=== PATIENT | female | born 1985 ===

== ENCOUNTER 2018-04-17 09:19 | Inpatient (IN) | payer BC ==
[~2018-04-17] VITALS: Ht 167.6 cm; Wt 84.1 kg
[2018-05-12] VITALS (40 sets, daily range): BP systolic 103–152; BP diastolic 56–81; PULSE 76–108; TEMP 97.4–98.4
[2018-05-12] MEDS ORDERED: PRENATAL FORMU1 EAC3 PO (06:35)
[2018-05-12 08:11] LABS: HEMOGLOBIN 12.3 g/dl (12.5-16.0); MEAN CELL VOLUME 95 fl (80.0-100.0); MEAN CORPUSCULAR HEMOGLOBIN 33 pg (27.0-31.0); MEAN CORPUSCULAR HGB CONC 34 g/dl (33.0-37.0); MEAN PLATELET VOLUME 9.8 fl (7.4-10.4); PLATELET COUNT 267 K/mm3 (130-400); RED BLOOD COUNT 3.77 M/mm3 (4.10-5.30); REDCELL DISTRIBUTION WIDTH-CV 15.5 % (11.5-14.5)
[2018-05-12 08:14] LABS: HEMATOCRIT 35.8 % (37.0-47.0)
[2018-05-12 11:35] LABS: LYMPHOCYTE 21 % (20.0-51.0); METAMYELOCYTE 1 % (0-0); NEUTROPHILS 70 % (42.0-75.2); PLATELET ESTIMATE NORMAL (NORMAL)
[2018-05-13 00:01] VITALS: BP 122/68; PULSE 68; TEMP 98.5
[2018-05-13 03:30] VITALS: BP 111/74; PULSE 91; TEMP 98.2
[2018-05-13 08:15] VITALS: BP 124/79; PULSE 98; TEMP 98.4
[2018-05-13] MEDS ORDERED: MOTRIN 800800 MG/TAB PO (08:48)
[2018-05-13 16:20] VITALS: BP 137/78; PULSE 95; TEMP 98.2
[2018-05-13 20:00] VITALS: BP 139/79; PULSE 96; TEMP 98.2
[2018-05-14 07:45] VITALS: BP 121/71; PULSE 78; TEMP 98.4
== END 2018-05-14 11:30 | disposition home or self-care (01) | DRG 807 ==
LOC: EDSTATUS 05-09 05:59 → LDRO 05-09 09:19 → LDR 05-12 06:00 → OB 05-12 07:07 → LDR 05-12 07:07 → OB 05-12 19:41
PROVIDERS: ADMIT Obstetrics & Gynecology
PROC: 10D07Z6 Extraction of Products of Conception, Vacuum, Via Natural or Artificial Opening (ICD-10-PCS; principal; 2018-05-12)
PROC: 0KQM0ZZ Repair Perineum Muscle, Open Approach (ICD-10-PCS; 2018-05-12)
PROC: 3E033VJ Introduction of Other Hormone into Peripheral Vein, Percutaneous Approach (ICD-10-PCS; 2018-05-12)
PROC: 10907ZC Drainage of Amniotic Fluid, Therapeutic from Products of Conception, Via Natural or Artificial Opening (ICD-10-PCS; 2018-05-12)
DX: O76 Abnormality in fetal heart rate and rhythm complicating labor and delivery (principal); Z37.0 Single live birth; Z3A.40 40 weeks gestation of pregnancy; O70.1 Second degree perineal laceration during delivery; F90.9 Attention-deficit hyperactivity disorder, unspecified type; J45.909 Unspecified asthma, uncomplicated; O75.89 Other specified complications of labor and delivery
CPT/HCPCS: J2590; J7120